=== PATIENT | female | born 1975 | race Two or more races ===

== ENCOUNTER 2023-06-19 15:05 | Inpatient (IN) | payer OTHER ==
[~2023-06-19] VITALS: Ht 167.6 cm; Wt 88.0 kg
[~2023-06-19 15:05] MED LIST: EMGALITY P120 MG/1 M; FUSION PLUS CA1 EACH PO; LIPITOR20 MG PO; METFORMIN HCL500 M3 PO; PROZAC20 MG PO; STEGLATRO5 MG PO; TRAZODONE HCL50 MG PO
== END 2023-06-23 16:21 | disposition home or self-care (01) | DRG 742 ==
LOC: O/R 06-21 06:39 → SURH 06-21 08:15 → O/R 06-21 14:39 → OB/GYN 06-21 18:59
PROVIDERS: ADMIT Obstetrics & Gynecology; ATTEND Obstetrics & Gynecology
PROC: 0UT74ZZ Resection of Bilateral Fallopian Tubes, Percutaneous Endoscopic Approach (ICD-10-PCS; 2023-06-21)
PROC: 0DQ84ZZ Repair Small Intestine, Percutaneous Endoscopic Approach (ICD-10-PCS; 2023-06-21)
PROC: 0UT94ZZ Resection of Uterus, Percutaneous Endoscopic Approach (ICD-10-PCS; principal; 2023-06-21 08:15)
DX: D25.1 Intramural leiomyoma of uterus (principal); K91.72 Accidental puncture and laceration of a digestive system organ or structure during other procedure; D25.2 Subserosal leiomyoma of uterus; Z20.822 Contact with and (suspected) exposure to COVID-19